=== PATIENT | female | born 1950 | race Caucasian/White ===

== ENCOUNTER 2019-09-03 11:31 | Day surgery (SDC) | payer MEDICARE, OTHER ==
[~2019-09-03] VITALS: Ht 170.2 cm; Wt 52.3 kg
--- NOTE | ~2019-09-03 | OP ---
PATIENT NAME: EFFIE PARKINSON MEDICAL RECORD: [id number] :54 LOCATION:[facility] ADMISSION DATE: SURGEON: MICHAEL FUENTES MD DATE OF OPERATION: 09/03/2019 PROCEDURE: EGD with biopsy. REFERRING PHYSICIAN: Jacki Marion MD INDICATIONS: Ms. Parkinson is a delightful 68-year-old woman who has had symptoms of diarrhea for approximately the past 5 months, she has had no associated diarrhea. She was on a trial of Flagyl (due to the presence of fecal leukocytes), but she was unable to complete the prescription secondary to nausea. She has occasional heartburn, diarrhea is typically occurring postprandial her has a history of celiac disease. She recently tried a gluten-free diet, which seemed to help some. She has lost approximately 5-6 pounds over the past month. Her last colonoscopy was in 01/10/2019 with finding showing mild diverticulosis of the sigmoid colon. She presents for an outpatient EGD. PREMEDICATIONS: Total IV anesthesia (propofol 80 mg). INSTRUMENT: Olympus video gastroscope. PROCEDURE AND FINDINGS: After receiving informed consent, Ms. Parkinson's posterior pharynx was anesthetized with Cetacaine spray. She was placed in left lateral decubitus position, sedated as per anesthesia. After achieving an adequate level of sedation, gastroscope was introduced per orally and advanced into the duodenum without difficulty. Esophageal mucosa was without erythema, ulcers, strictures, or masses, appeared normal down the GE junction. Small sliding type hiatal hernia was present. Gastric mucosa was notable for mild to moderate prepyloric and antral erythema and antral biopsies were obtained to rule out Helicobacter pylori. There was also scattered patches of erythema in the body of the stomach and biopsies were taken from the body of the stomach. Biopsies were taken. No lesions were seen in the cardia or fundus. Pylorus was patent and competent. Duodenal mucosa was without erythema or ulcers, appeared normal through the second portion. Biopsies were taken from the second portion of duodenum to rule out celiac disease. Gastroscope was then withdrawn. Ms. Parkinson tolerated procedure well, no immediate complications. ASSESSMENT: 1. Small sliding type hiatal hernia. 2. Gastritis. 3. Diarrhea. RECOMMENDATIONS: 1. Follow up histopathology. 2. Pepcid 20 mg p.o. b.i.d. 3. Recommend colonoscopy. TRANSINT:[id number] Voice Confirmation ID: [id number] DOCUMENT ID: [id number] OPERATIVE REPORT [id number] EFFIE PARKINSON TERRI MD CC: JACKI MARION [phone] DICTATION DATE: 09/03/19 1335 RADIO ELECTRICIAN: 09/03/19 1607 [facility] 09/03/19 [place] [id number] [place] [id number]
[2019-09-03 11:53] LABS: BASOPHILS 0.2 % (0-2); EOSINOPHILS 0.7 % (0-7); HEMATOCRIT 41.5 % (36.0-48.0); HEMOGLOBIN 13.6 g/dL (12-16); IMMATURE GRANULOCYTES 0.2 % (0-5); LYMPHOCYTES 8.1 % (15-50); MCH 34.5 pg (26.0-34.0); MCHC 32.8 g/dL (31.0-37.0); MCV 105.3 fL (80.0-100.0); MONOCYTES 6.5 % (2-11); NEUTROPHILS 84.3 % (40-80); PLATELET COUNT 439 10x3/uL (130-400); RBC 3.94 10x6/uL (4.00-5.40); RDW 13.8 % (11.5-14.5)
[2019-09-03 12:00] LABS: CALC OSMOLALITY 277 mosm/kg (275-300); CALCIUM 8.4 mg/dL (8.5-10.1); CARBON DIOXIDE 29.8 mmol/L (21.0-32.0); CHLORIDE - SERUM 105 mmol/L (98-107); CREATININE - SERUM 0.6 mg/dL (0.6-1.3); GLUCOSE 101 mg/dL (74-106); POTASSIUM - SERUM 4.2 mmol/L (3.5-5.1); SODIUM 140 mmol/L (136-145); UREA NITROGEN 10 mg/dL (7-18); eGFR NON AFRICAN AMERICAN > 90 mL/min (90-120)
[2019-09-03] MEDS ORDERED: PROBIOTIC1 EAC1 PO (12:03)
[2019-09-03] MEDS ORDERED: VITAMIN B-12500 MCG PO (12:03)
[2019-09-03] MEDS ORDERED: VITAMIN D1000 UNI1 PO (12:14)
[2019-09-03 12:25] VITALS: Ht 170.2 cm; Wt 52.3 kg
--- NOTE | 2019-09-03 14:20 | NUR ---
ALL DC CRITERIA MET. ALL DC INSTRUCTIONS GIVEN. TAKEN DOWN VIA W/C AND ASSISTED TO CAR WITH . ADVISED TO CALL OR COME BACK IF ANY PROBLEMS
== END 2019-09-03 14:15 | disposition home or self-care (01) ==
LOC: D.OPS 11:31
PROVIDERS: Anesthesiology; ATTEND Internal Medicine Gastroenterology
DX: R19.7 Diarrhea, unspecified (principal); R12 Heartburn; R11.0 Nausea; K29.70 Gastritis, unspecified, without bleeding; K44.9 Diaphragmatic hernia without obstruction or gangrene; R63.4 Abnormal weight loss